=== PATIENT | male | born 1955 | race American Indian/Alaskan Native ===

== ENCOUNTER 2017-07-17 04:08 | Inpatient (IN) | payer OTHER ==
[2017-07-17] MEDS ORDERED: ASPIRIN PO ONE (04:38)
[2017-07-17 05:02] LABS: Basophils % (Auto) 0.6 % (0.0-1.8); Eosinophils # (Auto) 0.3 K/mm3 (0.0-0.4); Eosinophils % (Auto) 4.9 % (0.0-4.3); Hematocrit 40.7 % (35.5-45.6); Hemoglobin 12.8 gm/dl (11.8-15.2); Lymphocytes # (Auto) 1.5 K/mm3 (1.2-5.4); Lymphocytes % (Auto) 23.8 % (13.4-35.0); Mean Corpuscular HGB Conc 31 % (32-34); Mean Corpuscular Volume 72 fl (84-94); Monocytes # (Auto) 0.4 K/mm3 (0.0-0.8); Monocytes % (Auto) 6.5 % (0.0-7.3); Platelet Count 233 K/mm3 (140-440); Red Blood Count 5.62 M/mm3 (3.65-5.03); Red Cell Distribution Width 15.8 % (13.2-15.2)
[2017-07-17 05:08] LABS: Mean Corpuscular Hemoglobin 23 pg (28-32)
[2017-07-17 05:20] LABS: BUN/Creatinine Ratio 13; Blood Urea Nitrogen 9 mg/dL (9-20); Calcium 7.7 mg/dL (8.4-10.2); Hemolysis Index 2
[2017-07-17 06:21] LABS: Bilirubin,Urine NEG (Negative); Blood,Urine NEG (Negative); Color,Urine Yellow (Yellow); Mucus,Urine FEW /HPF; Protein,Urine <15 mg/dL mg/dL (Negative)
--- NOTE | 2017-07-17 06:36 | Emergency Department Report ---
HPI - General Chief Complaint: Hyperglycemia Time Seen by Provider: 07/17/17 06:21 - HPI HPI: 61-year-old male presents to the emergency department from [facility] with complaint of elevated blood sugar and elevated troponin level. The patient had been having polyuria and polydipsia so his daughter, who is a diabetic, checked his blood sugar and found to be critically high. It was found to be greater than 600 [address]. He was given regular insulin there as a treatment. He denies any chest pain, shortness of breath, nausea, vomiting, fever, diaphoresis. Prior to this elevated blood sugar level he denies any past medical history. Nonsmoker and denies any illicit drug use. No recent travel or sick contacts at home. ED Past Medical Hx - Past Medical History Previous Medical History?: No - Surgical History Past Surgical History?: No - Social History Smoking Status: Never Smoker Substance Use Type: None - Medications Home Medications: Home Medications Medication Instructions Recorded Confirmed Last Taken Type No Known Home Medications [No 07/17/17 07/17/17 Unknown History Reported Home Medications] ED Review of Systems ROS: Stated complaint: ELEVATED TRIPONIN,HYPERGLYCEMIC Other details as noted in HPI Comment: All other systems reviewed and negative Constitutional: denies: chills, fever Eyes: denies: eye pain, eye discharge, vision change ENT: denies: ear pain, throat pain Respiratory: denies: cough, shortness of breath, wheezing Cardiovascular: denies: chest pain, palpitations Endocrine: increased thirst, increased urine Gastrointestinal: denies: abdominal pain, nausea, diarrhea Genitourinary: frequency. denies: dysuria Musculoskeletal: denies: back pain, joint swelling, arthralgia Skin: denies: rash, lesions Neurological: denies: headache, weakness, paresthesias Physical Exam - Physical Exam Vital Signs: Vital Signs 07/17/17 07/17/17 07/17/17 04:28 04:30 04:46 Temperature Pulse Rate 89 Respiratory 12 Rate Blood Pressure 159/76 159/76 Blood Pressure [Right] O2 Sat by Pulse 94 96 95 Oximetry 07/17/17 07/17/17 07/17/17 04:54 04:58 05:00 Temperature 99 F Pulse Rate 92 H 90 Respiratory 16 18 14 Rate Blood Pressure 202/128 Blood Pressure 159/76 [Right] O2 Sat by Pulse 95 97 97 Oximetry 07/17/17 07/17/17 07/17/17 05:16 05:30 05:46 Temperature Pulse Rate 83 85 76 Respiratory 15 19 24 Rate Blood Pressure 180/66 180/66 161/65 Blood Pressure [Right] O2 Sat by Pulse 96 96 96 Oximetry 07/17/17 06:00 Temperature Pulse Rate 83 Respiratory 17 Rate Blood Pressure 141/70 Blood Pressure [Right] O2 Sat by Pulse 96 Oximetry Physical Exam: GENERAL: The patient is well-developed well-nourished. HENT: Normocephalic. Atraumatic. Patient has moist mucous membranes. EYES: Extraocular motions are intact. Pupils equal reactive to light bilaterally. NECK: Supple. Trachea is midline. CHEST/LUNGS: Clear to auscultation. There is no respiratory distress noted. HEART/CARDIOVASCULAR: Regular. There is no tachycardia. There is no murmur. ABDOMEN: Abdomen is soft, nontender. Patient has normal bowel sounds. There is no abdominal distention. SKIN: Skin is warm and dry. NEURO: The patient is awake, alert, and oriented. The patient is cooperative. The patient has no focal neurologic deficits. The patient has normal speech. MUSCULOSKELETAL: There is no tenderness or deformity. There is no limitation range of motion. There is no evidence of acute injury. ED Course Vital Signs 07/17/17 07/17/17 07/17/17 04:28 04:30 04:46 Temperature Pulse Rate 89 Respiratory 12 Rate Blood Pressure 159/76 159/76 Blood Pressure [Right] O2 Sat by Pulse 94 96 95 Oximetry 07/17/17 07/17/17 07/17/17 04:54 04:58 05:00 Temperature 99 F Pulse Rate 92 H 90 Respiratory 16 18 14 Rate Blood Pressure 202/128 Blood Pressure 159/76 [Right] O2 Sat by Pulse 95 97 97 Oximetry 07/17/17 07/17/17 07/17/17 05:16 05:30 05:46 Temperature Pulse Rate 83 85 76 Respiratory 15 19 24 Rate Blood Pressure 180/66 180/66 161/65 Blood Pressure [Right] O2 Sat by Pulse 96 96 96 Oximetry 07/17/17 06:00 Temperature Pulse Rate 83 Respiratory 17 Rate Blood Pressure 141/70 Blood Pressure [Right] O2 Sat by Pulse 96 Oximetry - Consultations Consultation #1: My colleague had spoken to the [facility] and was given permission for admission by Dr. Mcintyre. 07/17/17 06:36 ED Medical Decision Making - Lab Data Result diagrams: 07/17/17 04:46 07/17/17 04:46 - EKG Data -: EKG Interpreted by Me EKG shows normal: sinus rhythm (with bigeminy), axis, intervals, QRS complexes, ST-T waves (T-wave inversions to the anterior, lateral and inferior leads with some mild ST depressions to the lateral leads) - EKG Data When compared to previous EKG there are: previous EKG unavailable Interpretation: other (supraventricular bigeminy, normal axis, T-wave inversions throughout the precordial leads and mild ST depression to the lateral leads) - Radiology Data Radiology results: image reviewed interpreted by me: Chest x-ray does not show any acute process. There are no pleural effusions, obvious pneumonia and there is no pneumothorax. - Medical Decision Making Patient presents from [place] with hyperglycemia and what appears to be new onset diabetes. He also has elevated troponin from [place]. EKG shows some T- wave inversions but no ST elevation OH. The troponin here is elevated and equivocal but not above the normal range to be NSTEMI but we will trend the troponin's. Blood sugar here is 270 and does not appear to be in DKA or HHNK. However he will be admitted to the hospital for further evaluation and treatment and was accepted for admission by the hospitalist service. - Differential Diagnosis OH, DKA, HHNK, UTI Critical Care Time: No Critical care attestation.: If time is entered above; I have spent that time in minutes in the direct care of this critically ill patient, excluding procedure time. ED Disposition Clinical Impression: Diabetes mellitus, new onset, Elevated troponin, Abnormal EKG Hypertension Qualifiers: Hypertension type: essential hypertension Qualified Code(s): I10 - Essential ( primary) hypertension Disposition: OP ADMIT IP TO THIS HOSP Is pt being admited?: Yes Condition: Stable Time of Disposition: 11:34
[2017-07-17] MEDS ORDERED: D50W (25GM) Syringe IV PRN (07:38)
--- NOTE | 2017-07-17 08:55 | XRay Report ---
AP CHEST : 07/17/17 07:46 CLINICAL: Hypertension COMPARISON:None FINDINGS: Normal heart and pulmonary vessels. The lungs are normally expanded and clear. The bones and soft tissues are normal. IMPRESSION: Normal chest.
--- NOTE | 2017-07-17 09:25 | History and Physical Report ---
History of Present Illness Date of examination: 07/17/17 Chief complaint: Sent from [place] for abnormal EKG History of present illness: 61-year-old -Burm[place] male with past medical history significant for morbid obesity sent from [place] to the emergency department for abnormal EKG. Patient had polyuria, polydipsia and dry mouth for last 2 weeks. He went to [place] yesterday and his blood sugar was in the 600s and he was started with insulin and was given IV fluids and blood glucose went down, but when they did EKG was done to have a inverted T waves and sent to the emergency department. Patient denied chest pain, shortness of breath, palpitation, leg swelling. The emergency department repeat EKG showed inverted T waves, cardiac enzymes were negative. Blood sugar was 270. Hemoglobin A1c was in complaint 17.7. Cardiology consulted. REVIEW OF SYSTEMS: GENERAL: no fatigue, no fever HEAD: no head ache EYES: no blurry vision, no acute visual loss EARS: no hearing loss, no discharge, no earache NOSE: no stuffiness, no sneezing, no discharge MOUTH, THROAT AND NECK: no bleeding gums, no sore throat, no swollen neck CARDIAC: no palpitations, no dyspnea on exertion, no orthopnea, no PND, no edema , no chest pain RESPIRATORY: no shortness of breath, no wheeze, no cough, no sputum, no hemoptysis, no asthma GI: no decreased appetite, no nausea, no vomiting, no dysphagia, no diarrhea, no constipation, no abdominal pain URINARY: no change in frequency, no urgency, no polyuria, no hematuria, no incontinence MUSCULOSKELETAL: no muscle weakness, no pain, no joint stiffness NEUROLOGIC: no loss of sensation/numbness, no tingling, no tremors, no weakness/ paralysis HEMATOLOGIC: no anemia, no easy bruising SKIN: no rashes ENDOCRINE: no heat/cold intolerance PSYCHIATRIC: no anxiety, no depression, no suicidal ideations Past History Past Medical History: other (obesity) Past Surgical History: No surgical history Social history: full code. denies: smoking, alcohol abuse, prescription drug abuse, IV drug use Family history: diabetes (mother and daughter) Medications and Allergies Allergies Allergy/AdvReac Type Severity Reaction Status Date / Time No Known Allergies Allergy Verified 07/17/17 04:37 Home Medications Medication Instructions Recorded Confirmed Last Taken Type No Known Home Medications [No 07/17/17 07/17/17 Unknown History Reported Home Medications] Active Meds: Active Medications Dextrose (D50w (25gm) Syringe) 50 ml IV PRN PRN PRN Reason: Hypoglycemia Heparin Sodium (Porcine) (Heparin) 5,000 unit SUB-Q Q8HR OTILIO Insulin Glargine (Lantus) 10 units SUB-Q QHS OTILIO Insulin Human Lispro (Humalog) 0 unit SUB-Q ACHS OTILIO; Protocol Exam - Physical Exam Narrative exam: Not in cardiopulmonary distress. The patient appeared well nourished and normally developed. Vital signs as documented. Head exam is unremarkable. No scleral icterus . Neck is without jugular venous distension, thyromegaly, or carotid bruits. Lungs are clear to auscultation. Cardiac exam reveals regular rate and Rhythm. First and second heart sounds normal. No murmurs, rubs or gallops. Abdominal exam reveals normal bowel sounds, no masses, no organomegaly and no aortic enlargement. Extremities are nonedematous and both femoral and pedal pulses are normal. 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 No focal weakness. - Constitutional Vitals: Temp Pulse Resp BP Pulse Ox 98.8 F 90 19 139/72 97 07/17/17 07:19 07/17/17 07:21 07/17/17 07:21 07/17/17 07:21 07/17/17 07:21 Results - Labs CBC & Chem 7: 07/17/17 04:46 07/17/17 04:46 Labs: Laboratory Last Values WBC 6.2 K/mm3 (4.5-11.0) 07/17/17 04:46 RBC 5.62 M/mm3 (3.65-5.03) H 07/17/17 04:46 Hgb 12.8 gm/dl (11.8-15.2) 07/17/17 04:46 Hct 40.7 % (35.5-45.6) 07/17/17 04:46 MCV 72 fl (84-94) L 07/17/17 04:46 MCH 23 pg (28-32) L 07/17/17 04:46 MCHC 31 % (32-34) L 07/17/17 04:46 RDW 15.8 % (13.2-15.2) H 07/17/17 04:46 Plt Count 233 K/mm3 (140-440) 07/17/17 04:46 Lymph % (Auto) 23.8 % (13.4-35.0) 07/17/17 04:46 Mchenry % (Auto) 6.5 % (0.0-7.3) 07/17/17 04:46 Eos % (Auto) 4.9 % (0.0-4.3) H 07/17/17 04:46 Baso % (Auto) 0.6 % (0.0-1.8) 07/17/17 04:46 Lymph # 1.5 K/mm3 (1.2-5.4) 07/17/17 04:46 Mchenry # 0.4 K/mm3 (0.0-0.8) 07/17/17 04:46 Eos # 0.3 K/mm3 (0.0-0.4) 07/17/17 04:46 Baso # 0.0 K/mm3 (0.0-0.1) 07/17/17 04:46 Seg Neutrophils % 64.2 % (40.0-70.0) 07/17/17 04:46 Seg Neutrophils # 4.0 K/mm3 (1.8-7.7) 07/17/17 04:46 VBG pH 7.374 (7.320-7.420) 07/17/17 04:46 Sodium 133 mmol/L (137-145) L 07/17/17 04:46 Potassium 3.8 mmol/L (3.6-5.0) 07/17/17 04:46 Chloride 97.2 mmol/L (98-107) L 07/17/17 04:46 Carbon Dioxide 25 mmol/L (22-30) 07/17/17 04:46 Anion Gap 15 mmol/L 07/17/17 04:46 BUN 9 mg/dL (9-20) 07/17/17 04:46 Creatinine 0.7 mg/dL (0.8-1.5) L 07/17/17 04:46 Estimated GFR > 60 ml/min 07/17/17 04:46 BUN/Creatinine Ratio 13 % 07/17/17 04:46 Glucose 275 mg/dL (75-100) H 07/17/17 04:46 Hemoglobin A1c 17.5 % (4-6) H 07/17/17 04:44 Calcium 7.7 mg/dL (8.4-10.2) L 07/17/17 04:46 Troponin T 0.015 ng/mL (0.00-0.029) 07/17/17 07:29 Urine Color Yellow (Yellow) 07/17/17 06:08 Urine Turbidity Clear (Clear) 07/17/17 06:08 Urine pH 5.0 (5.0-7.0) 07/17/17 06:08 Ur Specific Toponas 1.030 (1.003-1.030) 07/17/17 06:08 Urine Protein <15 mg/dl mg/dL (Negative) 07/17/17 06:08 Urine Glucose (UA) >=500 mg/dL (Negative) 07/17/17 06:08 Urine Ketones 20 mg/dL (Negative) 07/17/17 06:08 Urine Blood Neg (Negative) 07/17/17 06:08 Urine Nitrite Neg (Negative) 07/17/17 06:08 Urine Bilirubin Neg (Negative) 07/17/17 06:08 Urine Urobilinogen 2.0 mg/dL (<2.0) 07/17/17 06:08 Ur Leukocyte Esterase Neg (Negative) 07/17/17 06:08 Urine WBC (Auto) 3.0 /HPF (0.0-6.0) 07/17/17 06:08 Urine RBC (Auto) 3.0 /HPF (0.0-6.0) 07/17/17 06:08 U Epithel Cells (Auto) < 1.0 /HPF (0-13.0) 07/17/17 06:08 Urine Mucus Few /HPF 07/17/17 06:08 - Imaging and Cardiology EKG: image reviewed Chest x-ray: report reviewed Assessment and Plan Assessment and plan: New onset diabetes mellitus with hyperglycemia - Patient is on sliding-scale insulin and long-acting insulin - Hemoglobin A1c 17.7 Inverted T waves - Cardiology consulted Morbid obesity - Patient said he lost 40 pounds over the last one and half months - Encourage to continue to lose weight DVT prophylaxis -Heparin Disposition - Admitted to medical floor with remote telemetry. Advance Directives: Yes VTE prophylaxis?: Chemical Plan of care discussed with patient/family: Yes
[2017-07-17] MEDS: HEPARIN SUB-Q SCH ×3 (13:33→22:58)
--- NOTE | 2017-07-17 14:02 | Event Note ---
Date: 07/17/17 Detailed cardiology consultation dictated. Pt is [place] pt. A: #1: New onset diabetes mellitus with hyperglycemia #2: Abnormal ECG - diffuse t-wave inversions; Camille negative for AMI; pt denies chest pain #3: HTN #3: Obesity P: Obtain echo. Optimize anti-hypertensive regimen - initiate lopressor. Obtain lipid panel in AM. Plan for lexiscan MPI stress test in AM for risk stratification. NPO after MN. Erin JO NP / DR. WADDELL
[2017-07-17] MEDS: HumaLOG SUB-Q SCH ×3 (14:12→22:59)
[2017-07-17] MEDS: LOPRESSOR PO SCH ×2 (15:35→23:04)
[2017-07-17] MEDS ORDERED: LANTUS SUB-Q SCH (22:00)
--- NOTE | 2017-07-17 23:16 | Consultation ---
REQUESTING PHYSICIAN: Blaise Albarran MD CONSULTING PHYSICIAN: Erin Garcia MD HISTORY OF PRESENT ILLNESS: This is a 61-year-old male with no significant past medical history, who was admitted to the hospital with complaints of progressively worsening polyuria, polydipsia and dry mouth of 2 weeks' duration for further evaluation and management. History is now obtained from the patient. The patient states that he actually started noticing symptoms of polyuria, polydipsia about 4 weeks ago, but it got worse over the past 2 weeks. He has not been seeing a physician for at least 5 years and has not had any checkups as per the patient. So, he went to [facility] and there he was noted to have a blood sugar of over 600. So, they gave him insulin and IV fluids. Meanwhile, the EKG done showed marked T-wave inversion in anterolateral leads suggesting ischemia. So, the patient was sent to the Emergency Room here and the patient was then admitted to the hospital for further management. The patient stated that he does not have any history of hypertension or diabetes mellitus prior to this. Denied any known cardiac problems. The patient also had denied any history of respiratory symptoms like wheezing or asthma. No GI complaints either. The patient stated that he has been getting up frequently at nighttime and he attributes it to prostate problem and he was taking [id number] Beta Prostate p.o. daily, but he has not seen a neurologist. The patient denied any chest pain, pressure, tightness, heaviness, etc. No orthopnea or PND. No edema. No palpitation, claudication, dizziness or syncope. The patient is a nonsmoker and nonalcoholic. 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 FAMILY HISTORY: Positive for diabetes in his father and 23-year-old daughter. SOCIAL HISTORY: The patient is . REVIEW OF SYSTEMS: CARDIOVASCULAR: As described above. Denied any respiratory, GI, complaints, etc. was noted. MEDICATIONS: The patient was not on any specific medications at the time of admission. ALLERGIES: None known to medications. PHYSICAL EXAMINATION: GENERAL: This is a 61-year-old male, well built, well nourished, no acute distress at the present time. The patient's lungs clear to air entry, afebrile. VITAL SIGNS: Showed the vital signs are unremarkable. Blood pressure was 139/72, heart rate was 96 per minute and regular. He was afebrile. SKIN: Warm and dry. HEENT: Pupils are reactive. NECK: Supple. Both carotids are well palpable. No definite bruit. No JVD. LUNGS: Clear. CARDIOVASCULAR: S1, S2 normal. Grade 1/6 systolic murmur. No diastolic murmur or gallop. ABDOMEN: Soft and nontender. EXTREMITIES: No edema, no calf tenderness. Good pedal pulses. NEUROLOGIC: Grossly within normal limits. RECTAL: Not done at this time. LABORATORY DATA: The patient's CBC showed hemoglobin of 12.8 with hematocrit of 40.7. WBC count was 6200. His BMP showed sodium of 133 with a blood sugar of 275. BUN was 9 and creatinine 0.7. Hemoglobin A1c was 17.5. Troponin level was 0.015. EKG showed sinus rhythm with deep inverted T waves in anterolateral leads suggesting ischemia. Abnormal ECG. Chest x-ray was unremarkable. IMPRESSION: 1. Markedly abnormal EKG? cause, rule out ischemia. 2. New onset diabetes mellitus, uncontrolled. 3. Hypertension. 4. Obesity. There is a 61-year-old male admitted to the hospital with complaints of progressively worsening polyuria, polydipsia and weakness for further evaluation and management. The patient was not given uncontrolled diabetes mellitus at the time of admission. Following admission, the EKG showed marked T-wave inversion in anterolateral leads suggesting ischemia. Concerning the patient's age and diabetes, as such, the possibility of underlying coronary artery disease cannot be excluded. For now, we will try to get the diabetes under control and consider doing a Lexiscan thallium test to rule out any ischemia. We will monitor the blood pressure also closely. PLAN: Rest of the plan as per orders. Thank you very much for this consultation. We will follow the patient along with you. JOB# [id number] RY/ALISE
[2017-07-18 05:58] LABS: Chol/HDL Ratio 5.29 %
[2017-07-18] MEDS: HEPARIN SUB-Q SCH ×2 (06:18→14:34)
[2017-07-18] MEDS: HumaLOG SUB-Q SCH ×2 (07:45→12:55)
[2017-07-18] MEDS ORDERED: LEXISCAN IV ONE ×2 (08:14→08:24)
[2017-07-18 10:55] VITALS: BP 164/101
[2017-07-18] MEDS: LOPRESSOR PO SCH (10:59)
--- NOTE | 2017-07-18 11:08 | Progress Note ---
Assessment and Plan abnl ekg htn chol morbid obesity dm uncontrolled hypercougable state rec: in view of normal myocardial perfusion and normal lv function, cont treatment for uncontrolled dm, add walter and asa, statin and dm -1 control, maybe discharged from [facility] point [facility] Subjective Date of service: 07/18/17 Principal diagnosis: abnl ekg Interval history: pt has no chest pain or sob Objective Vital Signs Temp Pulse Resp BP Pulse Ox 07/18/17 10:51 98.4 F 85 18 164/101 97 07/18/17 08:47 112 H 195/92 07/18/17 08:46 114 H 180/96 07/18/17 08:45 113 H 183/96 07/18/17 08:44 119 H 176/90 07/18/17 08:43 119 H 140/79 07/18/17 08:26 85 186/96 07/18/17 05:00 98.8 F 81 20 154/91 95 07/17/17 23:33 98.9 F 77 20 172/99 97 07/17/17 23:04 85 160/90 07/17/17 20:00 99.2 F 85 18 178/94 95 07/17/17 15:35 166/98 07/17/17 14:10 99.7 F H 95 H 20 166/98 96 - Physical Examination General: Appears Well, No Apparent Distress HEENT: Positive: PERRL, EOMI Neck: Positive: neck supple Cardiac: Positive: Reg Rate and Rhythm Lungs: Positive: clear to auscultation Neuro: Positive: Grossly Intact Abdomen: /Rectal: Normal Prostate, No Masses Skin: Musculoskeletal: No Fluid Collection, No Pain, Normal Range of Motion Gait: Normal Gait Extremities: - Labs and Meds Lipids 07/18/17 Range/Units 05:09 Triglycerides 221 H (2-149) mg/dL Cholesterol 143 (50-199) mg/dL HDL Cholesterol 27 L (40-59) mg/dL Cholesterol/HDL Ratio 5.29 % - Imaging and Cardiology EKG: image reviewed Pharmacologic stress test: report reviewed (07/18/2017 no signficant ischemia noted, normal lv function) Echo: report reviewed (normal lv funciton , mild ai) - Telemetry EKG Rhythm: Sinus Rhythm
--- NOTE | 2017-07-18 11:58 | Discharge Summary ---
Providers - Providers Date of Admission: 07/17/17 07:36 Attending physician: LETI AGUILAR MD 07/17/17 07:40 Consult to Physician [CONS] Routine Comment: Consulting Provider: CHINYERE DRIVER Physician Instructions: Reason For Exam: T wave inversion, new onset DM Primary care physician: ALEXIS CHERRY Hospitalization Condition: Stable Hospital course: 61-year-old -[place]au[place] male with past medical history significant for morbid obesity sent from [place] to the emergency department for abnormal EKG. Patient had polyuria, polydipsia and dry mouth for last 2 weeks. He went to [place] yesterday and his blood sugar was in the 600s and he was started with insulin and was given IV fluids and blood glucose went down, but when they did EKG was done to have a inverted T waves and sent to the emergency department. Patient denied chest pain, shortness of breath, palpitation, leg swelling. The emergency department repeat EKG showed inverted T waves, cardiac enzymes were negative. Blood sugar was 270. Hemoglobin A1c was in complaint 17.7. Cardiology consulted. abnl ekg htn chol morbid obesity dm uncontrolled hypercougable state rec: in view of normal myocardial perfusion and normal lv function, cont treatment for uncontrolled dm, add walter and asa, statin and dm -1 control, maybe discharged from [facility] point [facility] Disposition: DC-01 TO HOME OR SELFCARE Time spent for discharge: 35 mins Core Measure Documentation - Palliative Care Palliative Care/ Comfort Measures: Not Applicable - Core Measures Any of the following diagnoses?: none - VTE Discharge Requirements Deep Vein Thrombosis/Pulmonary Embolism Present on Admission: No Exam - Constitutional Vitals: Temp Pulse Resp BP Pulse Ox 98.4 F 85 18 164/101 97 07/18/17 10:51 07/18/17 10:51 07/18/17 10:51 07/18/17 10:51 07/18/17 10:51 Plan Activity: advance as tolerated, fall precautions ( ) Diet: low cholesterol, diabetic Special Instructions: record daily weights, record daily BP diary, record blood sugar diary Additional Instructions: Follow with [facility] Follow up with: ALEXIS CHERRY MD [Primary Care Provider] - 3-5 Days Prescriptions: Insulin Glargine [Lantus VIAL] 15 units SUB-Q QHS #1 units Simvastatin 20 mg PO QHS #30 tablet Aspirin 81 mg PO DAILY #30 tab.chew Lisinopril [Zestril TAB] 10 mg PO QDAY #30 tablet Metoprolol [Lopressor TAB] 25 mg PO BID #60 tablet
--- NOTE | 2017-07-18 12:47 | Treadmill Report ---
NUCLEAR IMAGING STUDY READING PHYSICIAN: Dr. Thomas. REASON FOR STUDY: Abnormal EKG, diabetes. IMAGING PROTOCOL: The patient received 10 mCi of Technetium 99m Tetrofosmin for resting image and 28 mCi of Technetium 99m Tetrofosmin for stress imaging. The imaging for the whole procedure was completed 30-90 minutes following the initial injection of Technetium 99m tetrofosmin. The SPECT imaging in the 180 degree arc was performed in the right anterior oblique projection. Computerized reconstruction of the images was performed for analysis. IMAGING RESULTS: Normal cavity size at stress to rest. Normal distribution of radionuclide in the anterior, inferior, septal, and apical regions. Gated SPECT EF of 55% with no wall motion abnormality. The patient infused Lexiscan with no EKG changes. SUMMARY: 1. Negative Lexiscan EKG. 2. Normal rest and stress myocardial perfusion scan. No significant stress ischemia. No wall motion abnormality. Gated SPECT EF of 55%. JOB# [id number] CHARAN/ALISE
== END 2017-07-18 15:30 | disposition home or self-care (01) | DRG 638 ==
LOC: ED 04:08 → 3A 07:36
PROVIDERS: ADMIT Internal Medicine; ATTEND Internal Medicine
DX: E11.65 Type 2 diabetes mellitus with hyperglycemia (principal); D68.59 Other primary thrombophilia; I10 Essential (primary) hypertension; E66.01 Morbid (severe) obesity due to excess calories; Z68.36 Body mass index [BMI] 36.0-36.9, adult; Z83.3 Family history of diabetes mellitus
CPT/HCPCS: 36415; 71045; 78452; 80048; 80061; 81001; 82805; 82962; 83036; 84484; 85025; 93005; 93010; 93017; 93306; A9502; J1644; J1815; J2785